=== PATIENT | female | born 1935 | race African-American/Black ===

== ENCOUNTER 2017-04-27 08:31 | Inpatient (IN) | payer OTHER, MEDICAID ==
[~2017-04-27] VITALS: Ht 160 cm; Wt 56.7 kg
[2017-04-27 08:38] VITALS: BP 136/82
[2017-04-27] MEDS ORDERED: COUMADIN6 MG ORAL (08:42)
[2017-04-27] MEDS ORDERED: CARBIDOPA PO (09:11)
[2017-04-27] MEDS ORDERED: LEVODOPA PO (09:11)
[2017-04-27] MEDS ORDERED: ATORVASTATIN CA20 MG ORAL (09:11)
[2017-04-27] MEDS ORDERED: CALCIUM500 M3 PO (09:11)
[2017-04-27] MEDS ORDERED: AZILECT1 MG PO (09:11)
[2017-04-27] MEDS ORDERED: FUROSEMIDE40 MG ORAL (09:27)
[2017-04-27] MEDS ORDERED: SPIRONOLACTONE1 EACH ORAL (09:27)
[2017-04-27] MEDS ORDERED: VITAMIN D1000 UNI1 ORAL (09:27)
[2017-04-27] MEDS ORDERED: MIRTAZAPINE15 M3 ORAL (09:27)
--- NOTE | 2017-04-27 09:27 | Emergency Room Report ---
History of Present Illness General Chief Complaint: Nosebleed Source: Patient, EMS Present Illness HPI 81-year-old female presents to ED for evaluation. Son at bedside states that patient had a nosebleed which started this morning. Was on and off until he came to the hospital. Currently not actively bleeding. Patient is concerned because she is on blood thinners. Takes Coumadin. Compliant with her medications. Does not remember the last time they checked INR. Denies use of chills. Denies chest pain shortness of breath. Denies dizziness or weakness. No other aggravating or relieving factors. Denies any other associated symptoms Allergies: Coded Allergies: AMOXICILLIN (Verified Allergy, Unknown, 10/03/13) PENICILLINS (Verified Allergy, Unknown, 04/27/17) Patient History Past Medical History: HTN Past Surgical History: none Pertinent Family History: none Social History: Denies: alcohol use, drug use, smoking Last Menstrual Period: na Now: No Immunizations: UTD Reviewed Nursing Documentation: PMH: Agreed, PSxH: Agreed Nursing Documentation-PMH Past Medical History: No History, Except For Hx Cardiac Problems: Yes - CHF Hx Hypertension: Yes Hx Neurological Problems: Yes - Parkinsons Review of Systems All Other Systems: negative except mentioned in HPI Physical Exam Vital Signs Date Time Temp Pulse Resp B/P Pulse Ox O2 Delivery O2 Flow Rate FiO2 04/27/17 08:27 97.9 74 18 136/82 98 Room Air Sp02 EP Interpretation: reviewed, normal General Appearance: no apparent distress, alert, GCS 15, non-toxic Head: normocephalic, atraumatic Eyes: bilateral eye PERRL, bilateral eye normal inspection ENT: hearing grossly normal, normal pharynx, no angioedema, normal voice, other - dried blood in bilateral nares Neck: full range of motion, supple/symm/no masses Respiratory: chest non-tender, lungs clear, normal breath sounds, speaking full sentences Cardiovascular #1: regular rate, rhythm, no edema Cardiovascular #2: 2+ carotid (R), 2+ carotid (L), 2+ radial (R), 2+ radial (L) , 2+ dorsalis pedis (R), 2+ dorsalis pedis (L) Gastrointestinal: normal bowel sounds, non tender, soft, non-distended, no guarding, no rebound Rectal: deferred Genitourinary: normal inspection, no CVA tenderness Musculoskeletal: back normal, gait/station normal, normal range of motion, non- tender Neurologic: alert, oriented x3, responsive, motor strength/tone normal, sensory intact, speech normal Psychiatric: judgement/insight normal, memory normal, mood/affect normal, no suicidal/homicidal ideation Reflexes: 3+ bicep (R), 3+ bicep (L), 3+ tricep (R), 3+ tricep (L), 3+ knee (R) , 3+ knee (L) Skin: normal color, no rash, warm/dry, well hydrated Lymphatic: no adenopathy Medical Decision Making Diagnostic Impression: Primary Impression: Epistaxis Additional Impression: UGIB (upper gastrointestinal bleed) ER Course Hospital Course 81-year-old female presents to ED for evaluation of nosebleed. Not actively bleeding Differential diagnoses include: coagulopathy, anterior bleed, posterior bleed Clinical course Patient placed on stretcher. monitoring analyst. After initial history physical exam reveals an elderly female in no acute distress. There is no active bleeding from either naris. airways appears patent I ordered labs, IV fluids, afrin Labs - no leukocytosis, Hb/Hct stable. BUN/Cr elevated. INR 3.6 Patient is on Coumadin for valve replacement. Target INR is 2.5-3.5. Recommended to withhold one dose and reassess. However on reassessment patient was vomiting blood. Patient likely swallowed blood during prolonged epistaxis. Given Protonix. Given Zofran. I believe patient should be admitted at this time. discussed case with PMD Dr Brown Case discussed with Dr. Gandara and he agreed to accept the patient to his service for further care and support I feel this is a highly complex case requiring extensive working including EKG/ Rhythm strip, Xray/CT/US, Blood/urine lab work, repeat exams while in ED, and administration of strong opiates/narcotics for pain control, admission to hospital or close patient follow up. Diagnosis - epistaxis, UGIB Patient admitted to telemetry in serious condition Labs Test 04/27/17 09:00 White Blood Count 4.4 K/UL (4.8-10.8) Red Blood Count 4.01 M/UL (4.20-5.40) Hemoglobin 12.0 G/DL (12.0-16.0) Hematocrit 37.1 % (37.0-47.0) Mean Corpuscular Volume 92 FL (80-99) Mean Corpuscular Hemoglobin 29.9 PG (27.0-31.0) Mean Corpuscular Hemoglobin Concent 32.4 G/DL (32.0-36.0) Red Cell Distribution Width 13.3 % (11.6-14.8) Platelet Count 158 K/UL (150-450) Mean Platelet Volume 7.3 FL (6.5-10.1) Neutrophils (%) (Auto) % (45.0-75.0) Lymphocytes (%) (Auto) % (20.0-45.0) Monocytes (%) (Auto) % (1.0-10.0) Eosinophils (%) (Auto) % (0.0-3.0) Basophils (%) (Auto) % (0.0-2.0) Differential Total Cells Counted 100 Neutrophils % (Manual) 75 % (45-75) Lymphocytes % (Manual) 22 % (20-45) Monocytes % (Manual) 3 % (1-10) Eosinophils % (Manual) 0 % (0-3) Basophils % (Manual) 0 % (0-2) Band Neutrophils 0 % (0-8) Platelet Estimate Adequate Platelet Morphology Normal Red Blood Cell Morphology Normal Prothrombin Time 39.5 SEC (9.30-11.50) Prothromb Time International Ratio 3.7 (0.9-1.1) Activated Partial Thromboplast Time 43 SEC (23-33) Sodium Level 138 mEQ/L (135-145) Potassium Level 4.1 mEQ/L (3.4-4.9) Chloride Level 101 mEQ/L (98-107) Carbon Dioxide Level 22 mEQ/L (20-30) Anion Gap 15 (5-15) Blood Urea Nitrogen 28 mg/dL (7-23) Creatinine 1.5 mg/dL (0.5-0.9) Estimat Glomerular Filtration Rate mL/min (>60) Glucose Level 112 mg/dL (74-106) Calcium Level 9.0 mg/dL (8.6-10.2) Total Bilirubin 0.5 mg/dL (0.0-1.2) Aspartate Amino Transf (AST/SGOT) 24 U/L (5-40) Alanine Aminotransferase (ALT/SGPT) 12 U/L (3-33) Alkaline Phosphatase 62 U/L (35-104) Total Creatine Kinase 158 U/L (26-140) Creatine Kinase MB 5.5 ng/mL (< 3.8) Creatine Kinase MB Relative Index 3.4 Troponin I < 0.30 ng/mL (<=0.30) Total Protein 6.4 g/dL (6.6-8.7) Albumin 4.0 g/dL (3.5-5.2) Globulin 2.4 g/dL Albumin/Globulin Ratio 1.6 (1.0-2.7) Last Vital Signs Date Time Temp Pulse Resp B/P Pulse Ox O2 Delivery O2 Flow Rate FiO2 04/27/17 08:38 97.9 18 136/82 98 Room Air 04/27/17 08:27 74 Status: improved Disposition: ADMITTED INPATIENT Condition: Serious Referrals: NOT CHOSEN MIKAYLA/,REFERRING (PCP) PAUL ENGLISH M.D. Apr 27, 2017 09:27
[2017-04-27 09:42] LABS: MEAN CORPUSCULAR HEMOGLOBIN 29.9 PG (27.0-31.0); MEAN CORPUSCULAR HGB CONC 32.4 G/DL (32.0-36.0); MEAN CORPUSCULAR VOLUME 92 FL (80-99); MEAN PLATELET VOLUME 7.3 FL (6.5-10.1); PLATELET COUNT 158 K/UL (150-450); RED BLOOD COUNT 4.01 M/UL (4.20-5.40); RED CELL DISTRIBUTION WIDTH 13.3 % (11.6-14.8); WHITE BLOOD COUNT 4.4 K/UL (4.8-10.8)
[2017-04-27 09:51] LABS: TROPONIN I < 0.30 ng/mL (<=0.30)
[2017-04-27 09:52] LABS: INR 3.7 (0.9-1.1); PROTHROMBIN TIME 39.5 SEC (9.30-11.50)
[2017-04-27 09:53] LABS: ALANINE AMINOTRANSFERASE 12 U/L (3-33); ALBUMIN/GLOBULIN RATIO 1.6 (1.0-2.7); ANION GAP 15 (5-15); ASPARTATE AMINO TRANSFERASE 24 U/L (5-40); CARBON DIOXIDE 22 mEQ/L (20-30); CHLORIDE 101 mEQ/L (98-107); CREATININE 1.5 mg/dL (0.5-0.9); HEMOLYSIS 6; POTASSIUM 4.1 mEQ/L (3.4-4.9); SODIUM 138 mEQ/L (135-145); TOTAL PROTEIN 6.4 g/dL (6.6-8.7)
[2017-04-27 10:03] LABS: CKMB 5.5 ng/mL (< 3.8)
[2017-04-27 10:58] LABS: BAND NEUTROPHILS % (MANUAL) 0 % (0-8); BASOPHILS % (MANUAL) 0 % (0-2); EOSINOPHILS % (MANUAL) 0 % (0-3); LYMPHOCYTES % (MANUAL) 22 % (20-45); NEUTROPHILS % (MANUAL) 75 % (45-75); PLATELET ESTIMATE ADEQUATE; PLATELET MORPHOLOGY NORMAL; TOTAL CELLS COUNTED 100
[2017-04-27 11:04] VITALS: BP 158/73
[2017-04-27] MEDS ORDERED: Oxymetazoline 0.05% Na Spray 30ml NASAL ONE (11:15)
[2017-04-27] MEDS ORDERED: Pantoprazole Inj IVP ONE (11:30)
[2017-04-27] MEDS ORDERED: Mylanta II UD 30ml ORAL PRN (12:30)
[2017-04-27] MEDS ORDERED: Furosemide 40mg tab ORAL PRN (12:30)
[2017-04-27] MEDS ORDERED: Miralax 17gm pkt ORAL PRN (12:30)
[2017-04-27] MEDS ORDERED: Morphine Sulfate 2mg/ml Inj IVP PRN (12:30)
[2017-04-27] MEDS ORDERED: Nitroglycerin Subl 0.4mg tab (Bottle Of 25) SL PRN (12:30)
[2017-04-27] MEDS: D5NS 1,000 ML IV SCH (12:54)
[2017-04-27] MEDS: Sinemet 25/100 tab ORAL SCH ×2 (12:56→17:23)
[2017-04-27 13:07] VITALS: BP 139/111
[2017-04-27] MEDS ORDERED: Phytonadione 10 MG in D5W 55 ML IVPB ONE (13:30)
[2017-04-27 20:00] VITALS: BP 105/73
--- NOTE | 2017-04-27 20:42 | Cardiology Progress Note ---
Assessment/Plan Assessment/Plan The patient is seen and examined, full consult note will be dictated. Objective Last 24 Hour Vital Signs Date Time Temp Pulse Resp B/P Pulse Ox O2 Delivery O2 Flow Rate FiO2 04/27/17 13:51 97.9 95 18 139/104 98 Room Air 04/27/17 13:07 95 18 139/111 98 Room Air 04/27/17 11:04 83 18 158/73 98 Room Air 04/27/17 08:38 97.9 18 136/82 98 Room Air 04/27/17 08:27 97.9 74 18 136/82 98 Room Air Laboratory Tests Test 04/27/17 09:00 White Blood Count 4.4 K/UL (4.8-10.8) L Red Blood Count 4.01 M/UL (4.20-5.40) L Hemoglobin 12.0 G/DL (12.0-16.0) Hematocrit 37.1 % (37.0-47.0) Mean Corpuscular Volume 92 FL (80-99) Mean Corpuscular Hemoglobin 29.9 PG (27.0-31.0) Mean Corpuscular Hemoglobin Concent 32.4 G/DL (32.0-36.0) Red Cell Distribution Width 13.3 % (11.6-14.8) Platelet Count 158 K/UL (150-450) Mean Platelet Volume 7.3 FL (6.5-10.1) Neutrophils (%) (Auto) % (45.0-75.0) Lymphocytes (%) (Auto) % (20.0-45.0) Monocytes (%) (Auto) % (1.0-10.0) Eosinophils (%) (Auto) % (0.0-3.0) Basophils (%) (Auto) % (0.0-2.0) Differential Total Cells Counted 100 Neutrophils % (Manual) 75 % (45-75) Lymphocytes % (Manual) 22 % (20-45) Monocytes % (Manual) 3 % (1-10) Eosinophils % (Manual) 0 % (0-3) Basophils % (Manual) 0 % (0-2) Band Neutrophils 0 % (0-8) Platelet Estimate Adequate Platelet Morphology Normal Red Blood Cell Morphology Normal Prothrombin Time 39.5 SEC (9.30-11.50) H Prothromb Time International Ratio 3.7 (0.9-1.1) H Activated Partial Thromboplast Time 43 SEC (23-33) H Sodium Level 138 mEQ/L (135-145) Potassium Level 4.1 mEQ/L (3.4-4.9) Chloride Level 101 mEQ/L (98-107) Carbon Dioxide Level 22 mEQ/L (20-30) Anion Gap 15 (5-15) Blood Urea Nitrogen 28 mg/dL (7-23) H Creatinine 1.5 mg/dL (0.5-0.9) H Estimat Glomerular Filtration Rate mL/min (>60) Glucose Level 112 mg/dL (74-106) H Calcium Level 9.0 mg/dL (8.6-10.2) Total Bilirubin 0.5 mg/dL (0.0-1.2) Aspartate Amino Transf (AST/SGOT) 24 U/L (5-40) Alanine Aminotransferase (ALT/SGPT) 12 U/L (3-33) Alkaline Phosphatase 62 U/L (35-104) Total Creatine Kinase 158 U/L (26-140) H Creatine Kinase MB 5.5 ng/mL (< 3.8) H Creatine Kinase MB Relative Index 3.4 Troponin I < 0.30 ng/mL (<=0.30) Total Protein 6.4 g/dL (6.6-8.7) L Albumin 4.0 g/dL (3.5-5.2) Globulin 2.4 g/dL Albumin/Globulin Ratio 1.6 (1.0-2.7) PEEWEE OLVERA Apr 27, 2017 20:42
[2017-04-27] MEDS: Atorvastatin 20mg tab ORAL SCH (21:20)
--- NOTE | 2017-04-27 22:11 | History and Physical ---
History of Present Illness General Date patient seen: Apr 27, 2017 Reason for Hospitalization: Nosebleed Present Illness HPI 81-year-old female with CAD, on Coumadin presented to ED for evaluation of a nosebleed which started this morning. Was on and off until he came to the hospital. She did not remember the last time they checked INR. . Denies chest pain shortness of breath. Denies dizziness or weakness. No other aggravating or relieving factors. Denies any other associated symptoms. she was found to have ATN and pvc's. She is admitted to telemetry for further evaluation. Allergies: Coded Allergies: AMOXICILLIN (Verified Allergy, Unknown, 10/03/13) PENICILLINS (Verified Allergy, Unknown, 04/27/17) Medication History Scheduled Atorvastatin Calcium* (Atorvastatin Calcium*), 20 MG ORAL BEDTIME, (Reported) Calcium Carbonate (Calcium), 1,000 MG PO DAILY, (Reported) Cholecalciferol (Vitamin D3)* (Vitamin D*), 1,000 UNIT ORAL DAILY, (Reported) Mirtazapine* (Mirtazapine*), 15 MG ORAL BEDTIME, (Reported) Rasagiline Mesylate (Azilect), 1 MG PO DAILY, (Reported) Spironolact/Hydrochlorothiazid (Spironolactone-Hctz 25-25 Tab), 1 TAB ORAL DAILY , (Reported) Warfarin Sod* (Coumadin*), 6 MG ORAL DAILY, (Reported) [cardidopa-levodopa], 25-100 TAB PO TID, (Reported) Scheduled PRN Furosemide* (Lasix*), 40 MG ORAL DAILY PRN for edema, (Reported) Patient History Healthcare decision maker Resuscitation status Advanced Directive on File Past Medical/Surgical History Past Medical/Surgical History: (1) CAD (coronary artery disease) Review of Systems All Other Systems: negative except mentioned in HPI Physical Exam General Appearance: WD/WN, alert Lines, tubes and drains: peripheral HEENT: normocephalic, atraumatic Neck: non-tender, normal alignment Respiratory/Chest: chest wall non-tender, lungs clear Breasts: no masses Cardiovascular/Chest: normal peripheral pulses Abdomen: normal bowel sounds Genitourinary/Rectal: normal genital exam Extremities: normal range of motion Skin Exam: normal pigmentation Last 24 Hour Vital Signs Date Time Temp Pulse Resp B/P Pulse Ox O2 Delivery O2 Flow Rate FiO2 04/27/17 22:02 85 108/68 04/27/17 20:00 98.0 76 20 105/73 100 Nasal Cannula 2.0 04/27/17 13:51 97.9 95 18 139/104 98 Room Air 04/27/17 13:07 95 18 139/111 98 Room Air 04/27/17 11:04 83 18 158/73 98 Room Air 04/27/17 08:38 97.9 18 136/82 98 Room Air 04/27/17 08:27 97.9 74 18 136/82 98 Room Air Laboratory Tests Test 04/27/17 09:00 White Blood Count 4.4 K/UL (4.8-10.8) L Red Blood Count 4.01 M/UL (4.20-5.40) L Hemoglobin 12.0 G/DL (12.0-16.0) Hematocrit 37.1 % (37.0-47.0) Mean Corpuscular Volume 92 FL (80-99) Mean Corpuscular Hemoglobin 29.9 PG (27.0-31.0) Mean Corpuscular Hemoglobin Concent 32.4 G/DL (32.0-36.0) Red Cell Distribution Width 13.3 % (11.6-14.8) Platelet Count 158 K/UL (150-450) Mean Platelet Volume 7.3 FL (6.5-10.1) Neutrophils (%) (Auto) % (45.0-75.0) Lymphocytes (%) (Auto) % (20.0-45.0) Monocytes (%) (Auto) % (1.0-10.0) Eosinophils (%) (Auto) % (0.0-3.0) Basophils (%) (Auto) % (0.0-2.0) Differential Total Cells Counted 100 Neutrophils % (Manual) 75 % (45-75) Lymphocytes % (Manual) 22 % (20-45) Monocytes % (Manual) 3 % (1-10) Eosinophils % (Manual) 0 % (0-3) Basophils % (Manual) 0 % (0-2) Band Neutrophils 0 % (0-8) Platelet Estimate Adequate Platelet Morphology Normal Red Blood Cell Morphology Normal Prothrombin Time 39.5 SEC (9.30-11.50) H Prothromb Time International Ratio 3.7 (0.9-1.1) H Activated Partial Thromboplast Time 43 SEC (23-33) H Sodium Level 138 mEQ/L (135-145) Potassium Level 4.1 mEQ/L (3.4-4.9) Chloride Level 101 mEQ/L (98-107) Carbon Dioxide Level 22 mEQ/L (20-30) Anion Gap 15 (5-15) Blood Urea Nitrogen 28 mg/dL (7-23) H Creatinine 1.5 mg/dL (0.5-0.9) H Estimat Glomerular Filtration Rate mL/min (>60) Glucose Level 112 mg/dL (74-106) H Calcium Level 9.0 mg/dL (8.6-10.2) Total Bilirubin 0.5 mg/dL (0.0-1.2) Aspartate Amino Transf (AST/SGOT) 24 U/L (5-40) Alanine Aminotransferase (ALT/SGPT) 12 U/L (3-33) Alkaline Phosphatase 62 U/L (35-104) Total Creatine Kinase 158 U/L (26-140) H Creatine Kinase MB 5.5 ng/mL (< 3.8) H Creatine Kinase MB Relative Index 3.4 Troponin I < 0.30 ng/mL (<=0.30) Total Protein 6.4 g/dL (6.6-8.7) L Albumin 4.0 g/dL (3.5-5.2) Globulin 2.4 g/dL Albumin/Globulin Ratio 1.6 (1.0-2.7) Height (Feet): 5 Height (Inches): 3.00 Weight (Pounds): 125 Medications Current Medications Medications (Trade) Dose Ordered Sig/Johny Route PRN Reason Start Time Stop Time Status Last Admin Dose Admin Acetaminophen (Tylenol) 650 mg Q4H PRN ORAL fever 04/27/17 12:30 05/27/17 12:29 Al Hydroxide/Mg Hydroxide (Mylanta II) 30 ml Q6H PRN ORAL dyspepsia 04/27/17 12:30 05/27/17 12:29 Atorvastatin Calcium (Lipitor) 20 mg BEDTIME ORAL 04/27/17 21:00 05/27/17 20:59 Carbidopa/Levodopa (Sinemet 25/100) 1 ea THREE TIMES A DAY ORAL 04/27/17 13:00 05/27/17 12:59 04/27/17 17:23 Carvedilol (Coreg) 3.125 mg EVERY 12 HOURS ORAL 04/27/17 21:00 05/27/17 20:59 04/27/17 22:02 Dextrose STAT PRN IV Hypoglycemia 04/27/17 12:30 05/27/17 12:29 Dextrose/Sodium Chloride 1,000 ml @ 100 mls/hr Q10H IV 04/27/17 13:00 05/27/17 12:59 04/27/17 12:54 Diphenhydramine HCl (Benadryl) 25 mg Q6H PRN ORAL Itching/Pruritis 04/27/17 12:30 05/27/17 12:29 Furosemide (Lasix) 40 mg DAILYPRN PRN ORAL edema 04/27/17 12:30 05/27/17 12:29 Magnesium Sulfate (Magnesium Sulfate 1gm/100ml) 100 ml @ 100 mls/hr Q1H IVPB 04/27/17 21:15 04/27/17 23:14 04/27/17 21:55 Mirtazapine (Remeron) 15 mg BEDTIME ORAL 04/27/17 21:00 05/27/17 20:59 04/27/17 21:56 Morphine Sulfate (Morphine Sulfate) 2 mg Q4H PRN IVP severe Pain (Pain Scale 7-10) 04/27/17 12:30 05/04/17 12:29 Nitroglycerin (Ntg) 0.4 mg Q5M X 3 DOSES PRN SL Prn Chest Pain 04/27/17 12:30 05/27/17 12:29 Ondansetron HCl (Zofran) 4 mg Q6H PRN IVP Nausea & Vomiting 04/27/17 12:30 05/27/17 12:29 Polyethylene Glycol (Miralax) 17 gm HSPRN PRN ORAL Constipation 04/27/17 12:30 05/27/17 12:29 Temazepam (Restoril) 15 mg HSPRN PRN ORAL Insomnia 04/27/17 12:30 05/04/17 12:29 Assessment/Plan Problem List: (1) UGIB (upper gastrointestinal bleed) ICD Codes: K92.2 - Gastrointestinal hemorrhage, unspecified SNOMED: 90813489 (2) Epistaxis ICD Codes: R04.0 - Epistaxis SNOMED: 82360071, 781148042 (3) Coagulopathy ICD Codes: D68.9 - Coagulation defect, unspecified SNOMED: 36491454 (4) CAD (coronary artery disease) ICD Codes: I25.10 - Atherosclerotic heart disease of [place] coronary artery without angina pectoris SNOMED: 28114794 Assessment/Plan NPO IV fluids check electrolytes ENT evaluation prbc prn DONI ERNANDEZ Apr 27, 2017 22:11
--- NOTE | 2017-04-27 23:30 | Consultation ---
DATE OF CONSULTATION: 04/27/2017 CARDIOLOGY CONSULTATION CONSULTING PHYSICIAN: Enoc Alberto M.D. REFERRING PHYSICIAN: Shakira Gandara M.D. REASON FOR CONSULTATION: Management of cardiomyopathy. HISTORY OF PRESENT ILLNESS: The patient is a very unfortunate 81-year-old black female, who presents to the hospital with an episode of nosebleed. Apparently, the patient's nosebleed has been on and off in the past few days. She has been taking warfarin for her condition. Apparently, she does not take regular INR. On arrival to the emergency department, she did not have any complaints of chest pain or shortness of breath. The patient was admitted to the hospital for further evaluation of coagulopathy. Cardiology consultation was made for evaluation of tachycardia, which was evident on arrival old 12-lead electrocardiogram at the time of ED admission. There is also a questionable history of cardiomyopathy and also cardiac history is significant for history of coronary artery disease, history of coronary artery bypass graft surgery, which according to the patient was done at [facility]. The patient is suffering from underlying history of dementia, therefore a detailed history is not possible. PAST MEDICAL HISTORY: Including 1. History of congestive heart failure. 2. History of coronary artery disease, status post coronary artery bypass graft surgery. 3. History of hypertension. 4. History of Parkinson disease. 5. History of warfarin use for unclear etiology to be determined. PAST SURGICAL HISTORY: Coronary artery bypass graft surgery. SOCIAL HISTORY: There is no history of tobacco, alcohol, or illicit drug use. FAMILY HISTORY: No premature coronary artery disease in the first-degree relative. MEDICATIONS: List of medications, warfarin, the rest of the medication is not known. ALLERGIES: Amoxicillin and penicillin. REVIEW OF SYSTEMS: A 12-system review done essentially negative except what mentioned in the present illness. PHYSICAL EXAMINATION: VITAL SIGNS: Blood pressure was 136/82, pulse of 74, respirations of 18, O2 saturation 98% on room air, and temperature 97.9 degrees Fahrenheit. GENERAL: The patient is a very pleasant 81-year-old female, in no apparent respiratory distress. Alert and oriented x2. HEENT: Atraumatic and normocephalic. Anicteric. Pupils are equal, round, and reactive to light and accommodation. Extraocular muscles intact. NECK: JVP is elevated at just about 8 to 10 cm. No carotid bruits. Carotid upstrokes 2+ bilaterally. CARDIOVASCULAR: Normal S1, and a loud S2. A 2/6 mid systolic murmur at the left sternal border. PMI is at fourth intercostal space at the midclavicular line. LUNGS: Clear to auscultation bilaterally. ABDOMEN: Soft, nontender, and nondistended. No hepatosplenomegaly. Positive bowel sounds. EXTREMITIES: Cold feet. There is some cyanosis in the tip of the toes. LABORATORY AND DIAGNOSTIC DATA: A 12-lead electrocardiogram shows sinus tachycardia, rate of 103 with left axis deviation, left ventricular hypertrophy, and nonspecific ST and T-wave abnormality in the lateral leads, most likely LV repolarization abnormalities versus ischemia. LABORATORY FINDINGS: WBC is 4.4, hemoglobin 12.0, hematocrit 37.1%, and platelet count 158,000. Sodium is 138, potassium is 4.1 chloride 101, bicarbonate 22, BUN 28, creatinine 1.5, glucose is 112, and calcium is 9.0. INR is 3.7. Troponin I is less than 0.3. Chest x-ray is not available in the chart. ASSESSMENT AND PLAN: The patient is a very unfortunate 81-year-old female, who was seen in Cardiology consultation at the request of Dr. Gandara. 1. Sinus tachycardia, this could be secondary to the patient's cardiomyopathy. We would like to obtain 2D echocardiography for assessment of left ventricular systolic and diastolic function. 2. Nonsustained ventricular tachycardia was evident on the fruit inspector. We would like to continue magnesium sulfate 2 g intravenously and check the magnesium level in the morning. We would also like to start the patient on Coreg 3.125 mg twice daily. 3. History of congestive heart failure. A 2D echocardiography will shed light on this condition. We will start with beta-alexis and most likely add BENITO inhibitors and ARBs. Currently, the creatinine is 1.5, it is not clear whether this is an acute renal failure, acute kidney injury, or chronic kidney disease. 4. Coagulopathy due to warfarin use. The etiology of the underlying disorder, for which the patient receives warfarin is not clear. We require old records from [facility]. The patient is in the supratherapeutic zone. We will place and we will hold on warfarin with pharmacy to dose warfarin in the future. 5. History of hypertension. Continue to monitor the patient on current blood pressure medication. We require list of blood pressure medication from the patient's family members. The of blood pressure medication will also depend on the results of the echocardiography. I would like to thank, Dr. Gandara, for allowing me to participate in the care of this patient. Enoc Alberto M.D. DR: SUKHI JOB#: [id number] CC:
[2017-04-28] VITALS (7 sets, daily range): BP systolic 90–135; BP diastolic 57–80
[2017-04-28] MEDS: D5NS 1,000 ML IV SCH ×2 (02:58→09:00)
[2017-04-28 08:12] LABS: INR 1.3 (0.9-1.1); PROTHROMBIN TIME 13.4 SEC (9.30-11.50)
[2017-04-28 08:14] LABS: BASOPHILS % (AUTO) 1.4 % (0.0-2.0); EOSINOPHILS % (AUTO) 0.5 % (0.0-3.0); LYMPHOCYTES % (AUTO) 12.9 % (20.0-45.0); MEAN CORPUSCULAR HEMOGLOBIN 29.9 PG (27.0-31.0); MEAN CORPUSCULAR HGB CONC 32.5 G/DL (32.0-36.0); MEAN CORPUSCULAR VOLUME 92 FL (80-99); MEAN PLATELET VOLUME 6.5 FL (6.5-10.1); MONOCYTES % (AUTO) 5.9 % (1.0-10.0); NEUTROPHILS % (AUTO) 79.2 % (45.0-75.0); PLATELET COUNT 142 K/UL (150-450); RED BLOOD COUNT 3.33 M/UL (4.20-5.40); WHITE BLOOD COUNT 6.5 K/UL (4.8-10.8)
[2017-04-28 08:23] LABS: ALANINE AMINOTRANSFERASE 12 U/L (3-33); ALBUMIN/GLOBULIN RATIO 1.3 (1.0-2.7); AMYLASE 48 U/L (10-110); ANION GAP 16 (5-15); ASPARTATE AMINO TRANSFERASE 19 U/L (5-40); CALCIUM 8.2 mg/dL (8.6-10.2); CARBON DIOXIDE 20 mEQ/L (20-30); CHLORIDE 108 mEQ/L (98-107); CREATININE 1.4 mg/dL (0.5-0.9); HEMOLYSIS 7; LIPASE 16 U/L (< 60); POTASSIUM 4.6 mEQ/L (3.4-4.9); SODIUM 144 mEQ/L (135-145); TOTAL PROTEIN 5.7 g/dL (6.6-8.7)
--- NOTE | 2017-04-28 08:24 | General Progress Note ---
Progress Note Progress Note ENT Initial Consult note dictate Job 3 [id number] No bleeding for 12 hours plus Please see dictated note I will look at records in CS-link re this pt TALITA HOLLIS Apr 28, 2017 08:24
[2017-04-28] MEDS: Sinemet 25/100 tab ORAL SCH ×3 (08:58→18:00)
--- NOTE | 2017-04-28 12:11 | Pulmonology Progress Note ---
Assessment/Plan Problems: (1) UGIB (upper gastrointestinal bleed) (2) Epistaxis (3) Coagulopathy (4) CAD (coronary artery disease) Assessment/Plan no more bleeding start feeding decrease IV fluids talked to Dr. Francisco Coley, pt stable to be transferred to the [facility]. Subjective ROS Limited/Unobtainable: No Interval Events: no bleeding so far Allergies: Coded Allergies: AMOXICILLIN (Verified Allergy, Unknown, 10/03/13) PENICILLINS (Verified Allergy, Unknown, 04/27/17) Objective Last 24 Hour Vital Signs Date Time Temp Pulse Resp B/P Pulse Ox O2 Delivery O2 Flow Rate FiO2 04/28/17 08:58 91 135/73 04/28/17 08:27 97.0 91 18 135/73 98 Room Air 04/28/17 08:00 93 04/28/17 04:10 97.0 93 20 118/68 100 Nasal Cannula 2.0 04/28/17 04:00 86 04/28/17 00:01 97.7 93 20 120/80 100 Nasal Cannula 2.0 04/28/17 00:00 87 04/27/17 22:02 85 108/68 04/27/17 20:00 98.0 76 20 105/73 100 Nasal Cannula 2.0 04/27/17 20:00 86 04/27/17 13:51 97.9 95 18 139/104 98 Room Air 04/27/17 13:07 95 18 139/111 98 Room Air Intake and Output 04/27/17 04/28/17 19:00 07:00 Intake Total 1720 ml 1024 ml Output Total 200 ml Balance 1520 ml 1024 ml Intake Oral 620 ml IV Total 1100 ml 1024 ml Output Urine Total 200 ml # Voids 5 General Appearance: cachetic HEENT: normocephalic, atraumatic Respiratory/Chest: chest wall non-tender, normal breath sounds Cardiovascular: normal peripheral pulses, normal rate Abdomen: normal bowel sounds, soft, non tender Genitourinary: normal external genitalia Extremities: no cyanosis Laboratory Tests 04/28/17 07:05: White Blood Count 6.5, Red Blood Count 3.33L, Hemoglobin 10.0L, Hematocrit 30.6L , Mean Corpuscular Volume 92, Mean Corpuscular Hemoglobin 29.9, Mean Corpuscular Hemoglobin Concent 32.5, Red Cell Distribution Width 13.0, Platelet Count 142L, Mean Platelet Volume 6.5, Neutrophils (%) (Auto) 79.2H, Lymphocytes (%) (Auto) 12.9L, Monocytes (%) (Auto) 5.9, Eosinophils (%) (Auto) 0.5, Basophils (%) (Auto) 1.4, Prothrombin Time 13.4H, Prothromb Time International Ratio 1.3H, Activated Partial Thromboplast Time 24, Sodium Level 144, Potassium Level 4.6, Chloride Level 108H, Carbon Dioxide Level 20, Anion Gap 16H, Blood Urea Nitrogen 38H, Creatinine 1.4H, Estimat Glomerular Filtration Rate , Glucose Level 114H, Calcium Level 8.2L, Magnesium Level 2.4, Total Bilirubin 0.8 , Aspartate Amino Transf (AST/SGOT) 19, Alanine Aminotransferase (ALT/SGPT) 12, Alkaline Phosphatase 46, Total Protein 5.7L, Albumin 3.3L, Globulin 2.4, Albumin /Globulin Ratio 1.3, Amylase Level 48, Lipase 16 Current Medications Medications (Trade) Dose Ordered Sig/Johny Route PRN Reason Start Time Stop Time Status Last Admin Dose Admin Acetaminophen (Tylenol) 650 mg Q4H PRN ORAL fever 04/27/17 12:30 05/27/17 12:29 Al Hydroxide/Mg Hydroxide (Mylanta II) 30 ml Q6H PRN ORAL dyspepsia 04/27/17 12:30 05/27/17 12:29 Atorvastatin Calcium (Lipitor) 20 mg BEDTIME ORAL 04/27/17 21:00 05/27/17 20:59 04/27/17 21:20 Carbidopa/Levodopa (Sinemet 25/100) 1 ea THREE TIMES A DAY ORAL 04/27/17 13:00 05/27/17 12:59 04/28/17 08:58 Carvedilol 3.125 mg 3.125 mg EVERY 12 HOURS ORAL 04/27/17 21:00 05/27/17 20:59 04/28/17 08:58 Dextrose (Dextrose 50%) STAT PRN IV Hypoglycemia 04/27/17 12:30 05/27/17 12:29 Dextrose/Sodium Chloride (D5ns) 1,000 ml @ 50 mls/hr Q20H IV 04/28/17 13:00 05/28/17 12:59 UNV Diphenhydramine HCl (Benadryl) 25 mg Q6H PRN ORAL Itching/Pruritis 04/27/17 12:30 05/27/17 12:29 Furosemide (Lasix) 40 mg DAILYPRN PRN ORAL edema 04/27/17 12:30 05/27/17 12:29 Mirtazapine (Remeron) 15 mg BEDTIME ORAL 04/27/17 21:00 05/27/17 20:59 04/27/17 22:51 Morphine Sulfate (Morphine Sulfate) 2 mg Q4H PRN IVP severe Pain (Pain Scale 7-10) 04/27/17 12:30 05/04/17 12:29 Nitroglycerin (Ntg) 0.4 mg Q5M X 3 DOSES PRN SL Prn Chest Pain 04/27/17 12:30 05/27/17 12:29 Ondansetron HCl (Zofran) 4 mg Q6H PRN IVP Nausea & Vomiting 04/27/17 12:30 05/27/17 12:29 Polyethylene Glycol (Miralax) 17 gm HSPRN PRN ORAL Constipation 04/27/17 12:30 05/27/17 12:29 Temazepam (Restoril) 15 mg HSPRN PRN ORAL Insomnia 04/27/17 12:30 05/04/17 12:29 DONI ERNANDEZ Apr 28, 2017 12:11
[2017-04-28] MEDS ORDERED: D5NS 1,000 ML IV SCH (13:00)
--- NOTE | 2017-04-28 14:31 | GI Initial Consult Note ---
Leni Winkler NFarhatPFarhat 04/28/17 1431: History of Present Illness General Date patient seen: Apr 28, 2017 Time patient seen: 13:00 Reason for Hospitalization: Nosebleed Referring physician: DONI ERNANDEZ Reason for Consultation: UGIB Present Illness HPI 81-year-old female presents to ED for evaluation. Son at bedside states that patient had a nosebleed which started this morning. Was on and off until he came to the hospital. Currently not actively bleeding. Patient is concerned because she is on blood thinners. Takes Coumadin. Compliant with her medications. Does not remember the last time they checked INR. Denies use of chills. Denies chest pain shortness of breath. Denies dizziness or weakness. No other aggravating or relieving factors. Denies any other associated symptoms GI Consult. HPI as noted above. GI consulted for evaluation of UGIB. Pt seen on floor, awake NAD with no active s/sx of hematemesis or coffee grounds with son at bedside. According to the family, the patient experience an episode of epistaxis and did not vomit out blood, but instead spit out blood in her saliva. She presents today with anemia Hgb 10 of unknown etiology. According to the daughter, the patient has no prior history of any endoscopic procedures. Home Meds Reported Medications Cholecalciferol (Vitamin D3)* (VITAMIN D*) 1,000 Unit Tablet, 1000 UNIT ORAL DAILY, #30 TAB 04/27/17 Spironolact/Hydrochlorothiazid (SPIRONOLACTONE-HCTZ 25-25 TAB) 1 Each Tablet, 1 TAB ORAL DAILY, TAB 04/27/17 Mirtazapine* (MIRTAZAPINE*) 15 Mg Tablet, 15 MG ORAL BEDTIME, TAB 04/27/17 Furosemide* (LASIX*) 40 Mg Tablet, 40 MG ORAL DAILY Y for edema, TAB 04/27/17 [cardidopa-levodopa] No Conflict Check, 25-100 TAB PO TID 04/27/17 Calcium Carbonate (CALCIUM) 500 Mg Tab.chew, 1000 MG PO DAILY, TAB 04/27/17 Rasagiline Mesylate (AZILECT) 1 Mg Tablet, 1 MG PO DAILY, TAB 04/27/17 Atorvastatin Calcium* (ATORVASTATIN CALCIUM*) 20 Mg Tablet, 20 MG ORAL BEDTIME, TAB 04/27/17 Warfarin Sod* (COUMADIN*) 6 Mg Tablet, 6 MG ORAL DAILY, TAB 04/27/17 Med list reviewed/reconciled: Yes Allergies: Coded Allergies: AMOXICILLIN (Verified Allergy, Unknown, 10/03/13) PENICILLINS (Verified Allergy, Unknown, 04/27/17) Patient History Limited by: medical condition History Provided By: Family Member, Medical Record PMH Narrative Past Medical History: HTN Past Surgical History: none Pertinent Family History: none Social History: Denies: alcohol use, drug use, smoking Last Menstrual Period: na Now: No Immunizations: UTD Reviewed Nursing Documentation: PMH: Agreed, PSxH: Agreed Nursing Documentation-PMH Past Medical History: No History, Except For Hx Cardiac Problems: Yes - CHF Hx Hypertension: Yes Hx Neurological Problems: Yes - Parkinson Review of Systems All Other Systems: limited Physical Exam Vital Signs Date Time Temp Pulse Resp B/P Pulse Ox O2 Delivery O2 Flow Rate FiO2 04/27/17 08:27 97.9 74 18 136/82 98 Room Air 04/27/17 20:00 2.0 Sp02 EP Interpretation: reviewed Labs Laboratory Tests Test 04/28/17 07:05 White Blood Count 6.5 K/UL (4.8-10.8) Red Blood Count 3.33 M/UL (4.20-5.40) L Hemoglobin 10.0 G/DL (12.0-16.0) L Hematocrit 30.6 % (37.0-47.0) L Mean Corpuscular Volume 92 FL (80-99) Mean Corpuscular Hemoglobin 29.9 PG (27.0-31.0) Mean Corpuscular Hemoglobin Concent 32.5 G/DL (32.0-36.0) Red Cell Distribution Width 13.0 % (11.6-14.8) Platelet Count 142 K/UL (150-450) L Mean Platelet Volume 6.5 FL (6.5-10.1) Neutrophils (%) (Auto) 79.2 % (45.0-75.0) H Lymphocytes (%) (Auto) 12.9 % (20.0-45.0) L Monocytes (%) (Auto) 5.9 % (1.0-10.0) Eosinophils (%) (Auto) 0.5 % (0.0-3.0) Basophils (%) (Auto) 1.4 % (0.0-2.0) Prothrombin Time 13.4 SEC (9.30-11.50) H Prothromb Time International Ratio 1.3 (0.9-1.1) H Activated Partial Thromboplast Time 24 SEC (23-33) Sodium Level 144 mEQ/L (135-145) Potassium Level 4.6 mEQ/L (3.4-4.9) Chloride Level 108 mEQ/L (98-107) H Carbon Dioxide Level 20 mEQ/L (20-30) Anion Gap 16 (5-15) H Blood Urea Nitrogen 38 mg/dL (7-23) H Creatinine 1.4 mg/dL (0.5-0.9) H Estimat Glomerular Filtration Rate mL/min (>60) Glucose Level 114 mg/dL (74-106) H Calcium Level 8.2 mg/dL (8.6-10.2) L Magnesium Level 2.4 mg/dL (1.7-2.5) Total Bilirubin 0.8 mg/dL (0.0-1.2) Aspartate Amino Transf (AST/SGOT) 19 U/L (5-40) Alanine Aminotransferase (ALT/SGPT) 12 U/L (3-33) Alkaline Phosphatase 46 U/L (35-104) Total Protein 5.7 g/dL (6.6-8.7) L Albumin 3.3 g/dL (3.5-5.2) L Globulin 2.4 g/dL Albumin/Globulin Ratio 1.3 (1.0-2.7) Amylase Level 48 U/L (10-110) Lipase 16 U/L (< 60) General Appearance: no apparent distress, alert Head: normocephalic EENT: PERRL/EOMI, normal ENT inspection Neck: full range of motion, supple Respiratory: normal breath sounds, no respiratory distress Cardiovascular: normal rate Gastrointestinal: soft, normal bowel sounds Rectal: deferred Musculoskeletal: back normal Neurologic: normal inspection, alert, oriented x3, responsive Skin: normal inspection, normal color, no rash Lymphatic: normal inspection, no adenopathy Current Medications Current Medications Medications (Trade) Dose Ordered Sig/Johny Route PRN Reason Start Time Stop Time Status Last Admin Dose Admin Acetaminophen (Tylenol) 650 mg Q4H PRN ORAL fever 04/27/17 12:30 05/27/17 12:29 04/28/17 13:38 Al Hydroxide/Mg Hydroxide (Mylanta II) 30 ml Q6H PRN ORAL dyspepsia 04/27/17 12:30 05/27/17 12:29 Atorvastatin Calcium (Lipitor) 20 mg BEDTIME ORAL 04/27/17 21:00 05/27/17 20:59 04/27/17 21:20 Carbidopa/Levodopa (Sinemet 25/100) 1 ea THREE TIMES A DAY ORAL 04/27/17 13:00 05/27/17 12:59 04/28/17 13:10 Carvedilol 3.125 mg 3.125 mg EVERY 12 HOURS ORAL 04/27/17 21:00 05/27/17 20:59 04/28/17 08:58 Dextrose (Dextrose 50%) STAT PRN IV Hypoglycemia 04/27/17 12:30 05/27/17 12:29 Dextrose/Sodium Chloride (D5ns) 1,000 ml @ 50 mls/hr Q20H IV 04/28/17 13:00 05/28/17 12:59 04/28/17 13:16 Diphenhydramine HCl (Benadryl) 25 mg Q6H PRN ORAL Itching/Pruritis 04/27/17 12:30 05/27/17 12:29 Furosemide (Lasix) 40 mg DAILYPRN PRN ORAL edema 04/27/17 12:30 05/27/17 12:29 Mirtazapine (Remeron) 15 mg BEDTIME ORAL 04/27/17 21:00 05/27/17 20:59 04/27/17 22:51 Morphine Sulfate (Morphine Sulfate) 2 mg Q4H PRN IVP severe Pain (Pain Scale 7-10) 04/27/17 12:30 05/04/17 12:29 Nitroglycerin (Ntg) 0.4 mg Q5M X 3 DOSES PRN SL Prn Chest Pain 04/27/17 12:30 05/27/17 12:29 Ondansetron HCl (Zofran) 4 mg Q6H PRN IVP Nausea & Vomiting 04/27/17 12:30 05/27/17 12:29 Polyethylene Glycol (Miralax) 17 gm HSPRN PRN ORAL Constipation 04/27/17 12:30 05/27/17 12:29 Temazepam (Restoril) 15 mg HSPRN PRN ORAL Insomnia 04/27/17 12:30 05/04/17 12:29 GI: Plan Problems: (1) Anemia (2) Epistaxis (3) UGIB (upper gastrointestinal bleed) (4) Coagulopathy Plan EGD cancelled today, pt to be transferred to [place]. adv to cardiac diet monitor H&H, transfuse prn ppi fu labs spoke to son regarding patients anemia and possible future work up which includes endoscopic procedures outpatient GI procedures Discussed with dr. Johnson. Thank you for referring this patient. ALEXX JOHNSON 04/29/17 1239: History of Present Illness General Reason for Hospitalization: Nosebleed Present Illness Home Meds Reported Medications Cholecalciferol (Vitamin D3)* (VITAMIN D*) 1,000 Unit Tablet, 1000 UNIT ORAL DAILY, #30 TAB 04/27/17 Spironolact/Hydrochlorothiazid (SPIRONOLACTONE-HCTZ 25-25 TAB) 1 Each Tablet, 1 TAB ORAL DAILY, TAB 04/27/17 Mirtazapine* (MIRTAZAPINE*) 15 Mg Tablet, 15 MG ORAL BEDTIME, TAB 04/27/17 Furosemide* (LASIX*) 40 Mg Tablet, 40 MG ORAL DAILY Y for edema, TAB 04/27/17 [cardidopa-levodopa] No Conflict Check, 25-100 TAB PO TID 04/27/17 Calcium Carbonate (CALCIUM) 500 Mg Tab.chew, 1000 MG PO DAILY, TAB 04/27/17 Rasagiline Mesylate (AZILECT) 1 Mg Tablet, 1 MG PO DAILY, TAB 04/27/17 Atorvastatin Calcium* (ATORVASTATIN CALCIUM*) 20 Mg Tablet, 20 MG ORAL BEDTIME, TAB 04/27/17 Warfarin Sod* (COUMADIN*) 6 Mg Tablet, 6 MG ORAL DAILY, TAB 04/27/17 Allergies: Coded Allergies: AMOXICILLIN (Verified Allergy, Unknown, 10/03/13) PENICILLINS (Verified Allergy, Unknown, 04/27/17) GI: Plan Plan The patient was seen and examined at bedside and all new and available data was reviewed in the patients chart. I agree with the above findings, impression and plan. (Patient seen earlier today. Signature stamp does not reflect patient encounter time.). -Alexx Winkler,Leni Erik Meza Apr 28, 2017 14:31 ALEXX JOHNSON Apr 29, 2017 12:39
--- NOTE | 2017-04-28 15:05 | Cardiology Report ---
APPROVED REPORT EKG Measurement Heart [id number] Sinus tachycardia Left axis deviation Abnormal ECG
--- NOTE | 2017-04-28 15:29 | Cardiology Report ---
APPROVED REPORT EXAM: Two-dimensional and M-mode echocardiogram with Doppler and color Doppler. INDICATION Congestive Heart Failure M-Mode DIMENSIONS IVSd2.0 (0.7-1.1cm) LVDd4.6 (3.5-5.6cm) PWd2.1 (0.7-1.1cm) IVSs2.0 cm LVDs4.2 (2.5-4.0cm) PWs2.5 cm Normal left ventricular chamber size. Global left ventricular severe hypokinesis. Inferoseptal akinesis. Left ventricular ejection fraction estimated to be 20 %. Increased E point-interventricular septal separation c/w left ventricular dysfunction. Severe left ventricular hypertrophy. Anterior Echo-free space, may be due to pericardial fat or effusion. Moderate left atrial enlargement. Right atrial size at upper limits of normal. Right ventricular chamber size is within normal limits. An aortic valve prosthesis is seen and appears to move appropriately. Shadowing artifacts showing posterior to aortic valve prosthesis on left atrium noted. Thickened mitral valve leaflets with normal excursion. Mitral annulus and aortic root calcification. Pulmonic valve not well visualized. Normal tricuspid valve structure. IVC dilated at 2.2 cm with slight physiologic collapse suggestive of increased RA pressure. A color flow and spectral Doppler study was performed and revealed: Mild to moderate aortic regurgitation. Peak aortic valve gradient of 25 mm Hg and a mean of 10 mmHg. Aortic valve area 0.9 cm2 calculated by continuity equation. Aortic valve area maybe overestimated due to low systolic function. Moderate mitral regurgitation. Mitral inflow velocities indicates possible pseudo normalization pattern implying moderately elevated left atrial pressure (Grade II ). Mild tricuspid regurgitation. Tricuspid systolic velocities suggests peak right ventricular systolic pressure of 47 mmHg, consistent with moderate pulmonary hypertension. Pulmonic regurgitation present.
--- NOTE | 2017-04-28 17:00 | Consultation ---
DATE OF CONSULTATION: 04/28/2017 HEAD, NECK SURGERY AND ENT CONSULTATION REQUESTING PHYSICIAN: Shakira Gandara M.D. CONSULTING PHYSICIAN: John Rojas M.D. INDICATION FOR CONSULTATION: I have been asked to see this patient for for epistaxis. She was admitted last night with a high INR 3.4, which she has not been checking it. I am getting the notes from the chart, as the patient has dementia and I will be going to [facility] and will check her record there as well where she had a coronary artery bypass surgery in the past per the record, Dr. Alberto. PAST MEDICAL HISTORY: Incomplete, but putting together what the chart says congestive heart failure status post CABG, hypertension, Parkinson disease, dementia, warfarin use and unsure of family history, and tobacco or alcohol drug history. MEDICATIONS: Magnesium sulfate, Lipitor, Remeron, Coreg, Sinemet, Lasix, Tylenol, morphine, MiraLAX, Zofran, Restoril, Benadryl, Protonix, and Afrin nasal spray. The last time she received that was yesterday in the late evening. ALLERGIES: She is allergic to amoxicillin and penicillin. She is being worked up for sinus tachycardia. In fact, when I walked in the room, they were about to start an echo of her heart. PHYSICAL EXAMINATION: VITAL SIGNS: The patient is 160.02 centimeters, 56.699 kilograms and BMI 22.1 kilograms/meter squared. HEENT: Head normocephalic. She had humidified air was going in her nose. Her nose has no bleeding and the reasonable airway bilaterally. Mouth has no bleeding. Ears, positive light reflex. Normal canal. NECK: Normal. Laboratory And Diagnostic Data: She had an INR yesterday, I am going to make correction, was not 3.4, it is 3.7. There is a new one pending, drawn at 7:05 this morning. ASSESSMENT AND PLAN: From an ENT perspective, she has had no bleeding over the past 12+ hours per the nurse, who I spoke with, Beata. At this point, I would just make sure she has humidified air and control the INR. The next step would be a small amount of Neosporin or bacitracin in her notes about a quarter-inch in with a Q-tip. She has no further bleeding and her coagulations come back down to normal. If she is still in the hospital, we will do a nasal fiberoptic laryngoscopy and if not, she appears to be an HMO alignment. She should be followed up there with a fiberoptic exam of her nasopharynx by the contracted ENT, just to make sure there is not a vascular mass in that area. Thank you very much for asking my opinion in the care and treatment of this patient. John Rojas M.D. DR: ESTELA JOB#: [id number] CC: GEORGE
[2017-04-28] MEDS: Atorvastatin 20mg tab ORAL SCH (20:53)
--- NOTE | 2017-04-28 21:10 | Cardiology Progress Note ---
Assessment/Plan Assessment/Plan 1. Sinus tachycardia, this could be secondary to the patient's cardiomyopathy, up-titrate coreg to 6.25mg po bid. 2. Nonsustained ventricular tachycardia, continue B-blockers and Mg check. Magnesium sulfate 2 g given, Mg level is 2.4. 3. Acute on chronic systolic and diastolic CHF, require guideline directed medical therapy, start low dose enalapril, creat check daily. 4. Coagulopathy due to warfarin use, ? history of atrial arrhythmias. 5. History of hypertension, now low-normal BP. Subjective Subjective Sinus rhythm at 83. Objective Last 24 Hour Vital Signs Date Time Temp Pulse Resp B/P Pulse Ox O2 Delivery O2 Flow Rate FiO2 04/28/17 20:00 97.7 78 21 113/71 100 Nasal Cannula 2.0 04/28/17 16:05 97.7 71 18 90/57 100 Nasal Cannula 2.0 04/28/17 16:00 69 04/28/17 12:47 95.5 72 18 93/59 100 Nasal Cannula 2.0 04/28/17 12:00 72 04/28/17 08:58 91 135/73 04/28/17 08:27 97.0 91 18 135/73 98 Room Air 04/28/17 08:00 93 04/28/17 04:10 97.0 93 20 118/68 100 Nasal Cannula 2.0 04/28/17 04:00 86 04/28/17 00:01 97.7 93 20 120/80 100 Nasal Cannula 2.0 04/28/17 00:00 87 04/27/17 22:02 85 108/68 Intake and Output 04/27/17 04/28/17 19:00 07:00 Intake Total 1720 ml 1024 ml Output Total 200 ml Balance 1520 ml 1024 ml Intake Oral 620 ml IV Total 1100 ml 1024 ml Output Urine Total 200 ml # Voids 5 2D Echo: LVEF 20%, Sev LVH, RVSP 47mmHg, ModAS/AR, Mod MR Grade II LVDD Laboratory Tests Test 04/28/17 07:05 White Blood Count 6.5 K/UL (4.8-10.8) Red Blood Count 3.33 M/UL (4.20-5.40) L Hemoglobin 10.0 G/DL (12.0-16.0) L Hematocrit 30.6 % (37.0-47.0) L Mean Corpuscular Volume 92 FL (80-99) Mean Corpuscular Hemoglobin 29.9 PG (27.0-31.0) Mean Corpuscular Hemoglobin Concent 32.5 G/DL (32.0-36.0) Red Cell Distribution Width 13.0 % (11.6-14.8) Platelet Count 142 K/UL (150-450) L Mean Platelet Volume 6.5 FL (6.5-10.1) Neutrophils (%) (Auto) 79.2 % (45.0-75.0) H Lymphocytes (%) (Auto) 12.9 % (20.0-45.0) L Monocytes (%) (Auto) 5.9 % (1.0-10.0) Eosinophils (%) (Auto) 0.5 % (0.0-3.0) Basophils (%) (Auto) 1.4 % (0.0-2.0) Prothrombin Time 13.4 SEC (9.30-11.50) H Prothromb Time International Ratio 1.3 (0.9-1.1) H Activated Partial Thromboplast Time 24 SEC (23-33) Sodium Level 144 mEQ/L (135-145) Potassium Level 4.6 mEQ/L (3.4-4.9) Chloride Level 108 mEQ/L (98-107) H Carbon Dioxide Level 20 mEQ/L (20-30) Anion Gap 16 (5-15) H Blood Urea Nitrogen 38 mg/dL (7-23) H Creatinine 1.4 mg/dL (0.5-0.9) H Estimat Glomerular Filtration Rate mL/min (>60) Glucose Level 114 mg/dL (74-106) H Calcium Level 8.2 mg/dL (8.6-10.2) L Magnesium Level 2.4 mg/dL (1.7-2.5) Total Bilirubin 0.8 mg/dL (0.0-1.2) Aspartate Amino Transf (AST/SGOT) 19 U/L (5-40) Alanine Aminotransferase (ALT/SGPT) 12 U/L (3-33) Alkaline Phosphatase 46 U/L (35-104) Total Protein 5.7 g/dL (6.6-8.7) L Albumin 3.3 g/dL (3.5-5.2) L Globulin 2.4 g/dL Albumin/Globulin Ratio 1.3 (1.0-2.7) Amylase Level 48 U/L (10-110) Lipase 16 U/L (< 60) Objective HEENT: Atraumatic and normocephalic. Anicteric. Pupils are equal, round, and reactive to light and accommodation. Extraocular muscles intact. NECK: JVP is elevated at just about 8 to 10 cm. No carotid bruits. Carotid upstrokes 2+ bilaterally. CARDIOVASCULAR: Normal S1, and a loud S2. A 2/6 mid systolic murmur at the left sternal border. PMI is at fourth intercostal space at the midclavicular line. LUNGS: Clear to auscultation bilaterally. ABDOMEN: Soft, nontender, and nondistended. No hepatosplenomegaly. Positive bowel sounds. EXTREMITIES: Cold feet. There is some cyanosis in the tip of the toes. PEEWEE OLVERA Apr 28, 2017 21:10
[2017-04-29] MEDS ORDERED: Furosemide 40mg tab ORAL SCH (09:00)
[2017-04-29] MEDS ORDERED: Enalapril 2.5mg tab ORAL SCH (09:00)
--- NOTE | 2017-04-30 08:35 | Discharge Summary ---
Discharge Summary Hospital Course Date of Admission Apr 27, 2017 at 11:54 Date of Discharge Apr 28, 2017 at 23:31 Admitting Diagnosis UGIB MARGIE Landa is a 81 year old female who was admitted on Apr 27, 2017 at 11: 54 for Upper Gastrointestinal Bleeding Hospital Course [id number] Discharge Discharge Disposition Patient was discharged to [facility] Discharge Diagnoses: Beti Ferrara NP Apr 30, 2017 08:34
--- NOTE | 2017-04-30 12:45 | Discharge Summary 2 SIG ---
DATE OF ADMISSION: 04/27/2017 DATE OF DISCHARGE: 04/28/2017 CONSULTANTS: 1. Enoc Alberto M.D. 2. John Rojas M.D. 3. Alexx Goodwin M.D. BRIEF HOSPITAL COURSE: The patient is an 81-year-old female with coronary artery disease and is on Coumadin, presented to ED for evaluation of nosebleed which started on the morning of admission. On evaluation at ED, there was no active bleeding from the naris. Hemoglobin and hematocrit was stable. INR was elevated to 3.6. BUN and creatinine was elevated. At ED, the patient was noted to be vomiting blood. She was given Protonix and Zofran and was admitted for upper GI bleed and evaluation of epistaxis. The patient was admitted to telemetry. Dr. Rojas was consulted. On evaluation, there was no bleeding and was recommended to continue with humidified air and topical application of antibiotics. She was recommended to undergo nasal fiberoptic laryngoscopy as outpatient. She was also followed by Dr. Alberto for evaluation of tachycardia, which was evident on 12-lead EKG at the time of admission. There was nonspecific ST to T-wave abnormality in the lateral lead and had a nonsustained ventricular tachycardia that was evident on the mold sheet cleaner. She was given magnesium sulfate IV and was started on low-dose Coreg. GI was also consulted for evaluation of GI bleed and was recommended endoscopic procedures. The patient was eventually transferred to a contracted facility. FINAL DIAGNOSES: 1. Acute upper gastrointestinal bleed. 2. Epistaxis. 3. Hypercoagulable state secondary to Coumadin use. 4. Coronary artery disease. 5. Sinus tachycardia secondary to cardiomyopathy. 6. Nonsustained ventricular tachycardia. 7. Acute on chronic systolic and diastolic congestive heart failure. Shakira Gandara M.D. I have been assigned to dictate discharge summary on this account and I was not involved in the patient's management. Beti Ferrara N.P. DR: Valerie JOB#: [id number] CC:
== END 2017-04-28 23:31 | disposition short-term general hospital (02) | DRG 377 ==
LOC: EDBD 08:31 → EMR 09:04 → EDBEDREQ 11:53 → 2E 11:54 → EDBEDREQ 13:18
DX: K92.2 Gastrointestinal hemorrhage, unspecified (principal); I50.43 Acute on chronic combined systolic (congestive) and diastolic (congestive) heart failure; I47.2 Ventricular tachycardia; D68.32 Hemorrhagic disorder due to extrinsic circulating anticoagulants; I42.9 Cardiomyopathy, unspecified; R04.0 Epistaxis; T45.515A Adverse effect of anticoagulants, initial encounter; I25.10 Atherosclerotic heart disease of native coronary artery without angina pectoris; D64.9 Anemia, unspecified; Z88.1 Allergy status to other antibiotic agents; Z88.0 Allergy status to penicillin; Z95.1 Presence of aortocoronary bypass graft; I10 Essential (primary) hypertension; G20 Parkinson's disease
CPT/HCPCS: 36415; 80053; 82150; 82550; 82553; 83690; 83735; 84484; 85007; 85025; 85610; 85730; 93005; 93306; 93970; J2405